=== PATIENT | female | born 1995 | race Caucasian/White ===

== ENCOUNTER 2023-11-14 14:55 | Emergency (ER) | payer OTHER ==
[~2023-11-14] VITALS: Ht 170.2 cm; Wt 77.1 kg
[~2023-11-14 14:55] MED LIST: CEPH-588 PO; DOXY1TCP PO; METO-485 PO
[2023-11-14 15:06] VITALS: BP 106/64; PULSE 95; RESP 18; TEMP 98.5; O2SAT 99
[2023-11-14] MEDS ORDERED: OFLO10SO16 LEFT EAR (16:51)
[2023-11-14] MEDS ORDERED: SUD30 PO (16:51)
[2023-11-14 17:03] VITALS: BP 112/62; PULSE 88; RESP 16; TEMP 98; O2SAT 99
== END 2023-11-14 17:03 | disposition home or self-care (01) ==
LOC: MED 14:55
DX: H92.02 Otalgia, left ear (principal); Z79.899 Other long term (current) drug therapy
CPT/HCPCS: 99283